=== PATIENT | male | born 1985 | race Caucasian/White ===

== ENCOUNTER 2022-09-18 02:13 | Emergency (ER) | payer SELFPAY ==
[~2022-09-18] VITALS: Ht 180.3 cm; Wt 68.0 kg
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
[2022-09-18] MEDS ORDERED: KETOROLAC TROMETHAMINE INJ 30 MG/ML VIAL IV ONE (02:30)
[2022-09-18] MEDS ORDERED: METOCLOPRAMIDE HCL 10 MG/2 ML VIAL IV ONE (02:30)
[2022-09-18] MEDS ORDERED: diphenhydrAMINE HCL 50 MG/ML VIAL IV ONE (02:30)
--- NOTE | 2022-09-18 02:31 | NUR ---
IV access on RAC#18g intact and patent. no s/s of infiltrations.
[2022-09-18] MEDS ORDERED: diphenhydrAMINE HCL 50 MG/ML VIAL ONE (02:47)
[2022-09-18] MEDS ORDERED: METOCLOPRAMIDE HCL 10 MG/2 ML VIAL ONE (02:48)
[2022-09-18] MEDS ORDERED: KETOROLAC TROMETHAMINE 15 MG/ML VIAL ONE (02:48)
--- NOTE | 2022-09-18 04:00 | NUR ---
Note ethan in ED - 09/18/22 at 0402 by [email or web address] IV access on RAC#18g intact and patent. no s/s of infiltrations.
--- NOTE | 2022-09-18 05:19 | NUR ---
IV removed. Catheter intact and site benign. Pressure and 4x4 applied to site. No bleeding noted. Patient discharged to home in stable condition. Written and verbal after care instructions given. Patient verbalizes understanding of instruction. friend at bedside.
[2022-09-18 05:25] VITALS: BP 133/87
== END 2022-09-18 05:26 | disposition home or self-care (01) ==
LOC: ER 02:17
DX: S06.0X0A Concussion without loss of consciousness, initial encounter (principal); V49.9XXA Car occupant (driver) (passenger) injured in unspecified traffic accident, initial encounter; Y93.89 Activity, other specified; Y92.410 Unspecified street and highway as the place of occurrence of the external cause; Y99.8 Other external cause status
CPT/HCPCS: 99285; 96374; 70450; 96375; J1200; J2765; J7030; J1885